=== PATIENT | male | born 1985 | race African-American/Black ===

== ENCOUNTER 2021-06-26 19:21 | Emergency (ER) | payer SELFPAY ==
[2021-06-26 19:46] VITALS: BP 121/92; PULSE 81; TEMP 100.5; BMI 19.3
[2021-06-30 13:07] LABS: SARS-CoV-2 NAA Detected (Not Detected)
== END 2021-06-26 20:50 | disposition home or self-care (01) ==
LOC: JER 19:21
DX: M54.9 Dorsalgia, unspecified (principal); Z11.52 Encounter for screening for COVID-19
CPT/HCPCS: 87804; 99283-25; C9803; U0003; U0005